=== PATIENT | female | born 1955 | race Caucasian/White ===

== ENCOUNTER → 2017-09-17 13:02 | Outpatient (CLI) | payer OTHER, SELFPAY ==
[2017-09-17 13:20] LABS: Add Manual Diff / Slide Review NO; Basophils Percent Auto 0.9 % (0-2); Eosinophils Percent Auto 0.8 % (2-4); Hematocrit 38.7 % (36-46); Hemoglobin 13.2 g/dL (12.0-16.0); Lymphocytes Percent Auto 19.6 % (25-40); Mean Corpuscular HGB Conc 34.1 % (30-36); Mean Corpuscular Volume 93.9 fL (80-100); Monocytes Percent Auto 8.4 % (3-14); Neutrophils Absolute Auto 2500 /uL (3000-5900); Neutrophils Percent Auto 70.3 % (50-75); Platelet Count 207 X10^3/uL (150-400); Red Blood Cell Count 4.12 X10^6/uL (4.0-5.2); Red Cell Distribution Width 13.5 % (11.6-14.8); White Blood Cell Count 3.6 X10^3/uL (4.5-11.0)
[2017-09-17 13:48] LABS: Albumin 4.3 g/dL (3.5-5.0); Chloride 98 mmol/L (98-107); Estimated Glomerular Filt Rate > 60.0 mL/min (>60); HEMOLYSIS 50 (0-50); Potassium 4.1 mmol/L (3.4-5.1); Sodium 135 mmol/L (137-145)
[2017-09-17 14:23] LABS: Alanine Aminotransferase 22 IU/L (9-52); Albumin Globulin Ratio 1.7 (1.0-2.8); Alkaline Phosphatase 37 U/L (38-126); Aspartate Aminotransferase 32 IU/L (14-36); BUN Creatinine Ratio 21.4 (6-22); Bilirubin Total 0.8 mg/dL (0.2-1.3); Blood Urea Nitrogen 15 mg/dL (7-17); Calcium 9.6 mg/dL (8.4-10.2); Carbon Dioxide 23 mmol/L (22-32); Globulin 2.6 g/dL (1.7-4.1); Glucose 133 mg/dL (80-110); Total Protein 6.9 g/dL (6.3-8.2)
== END ==
PROVIDERS: PCP Internal Medicine; Visit Provider Nurse Practitioner Gerontology
DX: C50.912 Malignant neoplasm of unspecified site of left female breast (principal); T45.1X5A Adverse effect of antineoplastic and immunosuppressive drugs, initial encounter; R11.0 Nausea
CPT/HCPCS: 80053; 85025

== ENCOUNTER → 2017-10-27 08:43 | Outpatient (CLI) | payer OTHER, SELFPAY ==
[2017-10-27 10:04] LABS: Free T4, Direct Thyroxine 1.35 ng/dL (0.78-2.19)
[2017-10-27 10:17] LABS: Thyroid Stimulating Hormone 2.52 uIU/mL (0.47-4.68)
== END ==
PROVIDERS: PCP Internal Medicine; Visit Provider Internal Medicine
DX: E03.9 Hypothyroidism, unspecified (principal)
CPT/HCPCS: 36415; 84439; 84443; 84481

== ENCOUNTER → 2017-12-31 08:34 | Outpatient (CLI) | payer OTHER, SELFPAY ==
[2017-12-31 10:15] LABS: Free T3, Triiodothyronine Free 2.69 pg/mL (2.77-5.27); Free T4, Direct Thyroxine 1.24 ng/dL (0.78-2.19)
[2017-12-31 10:28] LABS: Thyroid Stimulating Hormone 4.69 uIU/mL (0.47-4.68)
== END ==
PROVIDERS: PCP Internal Medicine; Visit Provider Internal Medicine
DX: E03.9 Hypothyroidism, unspecified (principal)
CPT/HCPCS: 36415; 84439; 84443; 84481

== ENCOUNTER → 2018-01-26 12:58 | Outpatient (CLI) | payer OTHER, SELFPAY ==
--- NOTE | 2018-01-26 | DI.MG.S_ITS ---
UNILATERAL RIGHT DIGITAL SCREENING MAMMOGRAM 3D/2D WITH CAD POST MASTECTOMY: 01/26/2018 CLINICAL: Routine screening. Personal history of left breast cancer. Post left mastectomy. Comparison is made to exams dated: 01/21/2017 mammogram, 03/31/2016 mammogram - [facility], and 03/11/2016 [facility]. The tissue of right breast is heterogeneously dense. This may lower the sensitivity of mammography. Current study was also evaluated with a Computer Aided Detection (CAD) system. No significant masses, calcifications, or other findings are seen in the breast. There has been no significant interval change. IMPRESSION: NEGATIVE There is no mammographic evidence of malignancy. A 1 year screening mammogram is recommended. This exam was interpreted at Station ID: [id number]. NOTE: For mammograms, a report in lay terms will be sent to the patient. Approximately 15% of breast malignancies will not be visualized mammographically. In the management of a palpable breast mass, a negative mammogram must not discourage biopsy of a clinically suspicious lesion. Electronically Signed By: Mike sams/luis:01/26/2018 21:49:07 copy to: Xiomara Wade letter sent: Normal Exam ACR BI-RADS Category 1: Negative 3341F
== END ==
PROVIDERS: PCP Internal Medicine; Visit Provider Internal Medicine
DX: Z12.31 Encounter for screening mammogram for malignant neoplasm of breast (principal); Z85.3 Personal history of malignant neoplasm of breast
CPT/HCPCS: 77063; 77065

== ENCOUNTER → 2018-02-14 13:00 | Oncology outpatient (ONC) | payer OTHER, SELFPAY ==
--- NOTE | 2017-09-23 09:10 | P.PNONC_ITS ---
Assessment and Plan (1) Breast cancer, left Current visit: No Status: Acute 09/23/17 17:02 Zee is a 62-year-old female who is now in clinical surveillance with a diagnosis of stage II ER negative, her 2 positive breast cancer. She presents today for routine 6 month surveillance. She looks very good on exam today, overall is feeling well. She reports steady improvement with her overall well- being over the last several months since her chemotherapy was completed. She does still have some lingering cognitive issues specifically short-term memory and word finding however this is mild and also is getting better as time passes. It is noted she does use marijuana this may be contributing to some of this cognitive dysfunction. Patient agrees. However overall she states cognition is much improved and almost back to normal. Her primary care provider Dr. Alfred manages her thyroid most recent TSH was only mildly elevated at 4.7. She remains on levothyroxine 75 mcg once daily. She has her annual unilateral screening mammogram already scheduled for January. Return to clinic in 6 months time for provider visit CBC CMP. - Time Spent with Patient 35 minutes PN -Subjective Interval history: The patient is a 62 year old Female who is being seen in the clinic 09/23/2017. She carries a diagnosis of stage II ER negative HER-2 positive breast cancer treated with Adriamycin and psych low phosphate might followed by weekly pac litaxel. Treatment plan also included maintenance Herceptin x1 year however this was discontinued due to decline in ejection fraction. She was receiving maintenance Herceptin July 2016 through March 2017. Zee presents today for 6 month clinical evaluation. She states she is feeling stronger everyday. She remains active walking her dog several times a day. Denies chest pain, shortness of breath. Appetite is very good, weight is stable. No new lumps or bumps. Her thyroid seems to be under good control now. She already has her annual screening unilateral mammogram scheduled. No recent illnesses or infections. She reports some ongoing issues with memory, word finding which she first noticed when she was quite hypothyroid. Now much better and has been steadily improving. She does use marijuana for peripheral neuropathy which also seems to be getting better. Past Medical History The patient's past medical history is significant for: 1) left-sided invasive breast cancer: stage II (pT2, pN1, M0), ercb-2 like. Diagnosis/Surgery: 03/11/2016. Partial mastectomy. Pathology confirming invasive carcinoma of the breast measuring 34 mm in greatest diameter. [place] histological grade was 3 with a mitotic score of 2. Medial margin was focally positive all other margins were otherwise clear with no tumor on ink. No LV I was seen. Immunohistochemistry stains were estrogen and progesterone receptor negative at 0% and 0% respectively. 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 Architectural pattern was comedo. Grade was 3. Necrosis was present. Margins were clear but close with the medial, anterior and posterior margins at 1 mm. 04/14/2016. Rexcision of the left breast with sentinel node procedure. Pathology confirming scattered foci of DCIS high grade solid with no necrosis. Persistent positive margin noted at the superior the remainder margins were clear. No evidence of invasive carcinoma seen. One sentinel lymph node was positive for metastatic carcinoma measuring 12 mm without extranodal extension. 7 additional axillary lymph nodes were also excised noted which were involved with disease. Clinical staging workup: 01/10/2016. Bilateral screening mammogram. This identified new area of heterogeneous calcification left breast. Breast density was noted to be heterogeneously dense. Left-sided diagnostic mammogram in 01/22/2016 confirming calcifications left breast 12 o'clock position with an associated nodule measuring up to 7 mm. Ultrasound done later that day also confirming at least 3 areas of intraductal masses with circumscribed margins the left breast superior medial quadrant anterior depth measuring up to 5 mm. No abnormality was seen in the left axilla. 03/31/2016. MRI of the breast. In the left breast irregular fluid collection measuring 30 x 24 x 26 mm was reported as the resection cavity. However the lower margin extending upwards, posteriorly and laterally showing mildly thick wall enhancement suggestive for remaining disease. No other findings were seen in either breast. 04/17/2016. CT of the chest on the pelvis with contrast. No evidence of distant disease. 04/17/2016. Bone scan. No definitive evidence of distant disease was seen. 04/17/2016. Baseline tumor markers. Normal with CEA a at 0.9, CA 15-3 at 8, and CA 15.27 at 18. Prognosis/Predictive workup: PREDICT Tool 2.0: Five and 10 year survival without adjuvant therapy equal to 55 and 42% respectively. Anthracycline-based chemotherapy with concurrent Herceptin improving 5 and 10 year overall survival to 76% and 65% respectively. Aprroximate 20 and 23% absolute benefit. Treatment plan: Adjuvant chemotherapy, radiation, maintenance HER-2 based therapies. Specific regimen: Adriamycin and cyclophosphamide given every 2 weeks ?4 followed by weekly paclitaxel with concurrent Herceptin ?12. This will be followed with maintenance Herceptin ?1 year. Cycle 1 day 1 05/21/2016. 05/21/2016-10/20/2016: A/C ?4 followed by weekly paclitaxel with concurrent Herceptin. Total planned dose of paclitaxel = 960 mg/m?. Total administered = 720 mg/meter squared (dose limited by treatment side effects). 11/19/2016- : Maintenance Herceptin. Pertuzamab denied by insurance. Cardiac monitorin05/08/2016. Baseline echocardiogram. EF 60-65%. No valvular pathology appreciated. The ventricles were normal in size. Right ventricular systolic pressure 24 mmHg. 08/06/2016. Echocardiogram. (After 4 cycles of Adriamycin and cyclophosphamide). Ejection fraction equal to 60-65%. 11/02/2016. Echocardiogram (after 12 weeks of Herceptin). Ejection fraction equal to 60-65%. 01/20/2017. Echocardiogram. Ejection fraction 50-55%. 2) adrenal adenoma surgically resected. 3) secondary hypertension. 4) migraines. 5) hypothyroidism. Diagnosis confirmed on 10/01/2016. TSH equal to 6.9. Patient started level of thyroxine 25 ?g that day. TSH 0.02 01/2017 levothyroxine discontinued. TSH 03/08/2017 113. Levothyroxine resumed per PCP. 5) MTHFR mutation with a 1298 A>C. Clinical significance of this mutation is undetermined. Normal risk of hyper homocystinemia is noted. Patient does not have the more common 677 C>T mutation. Homocystine levels checked on 09/17/2016 normal at 6.1 (normal less than 10.4). Breast Resection Staging BC Resection Histology Grade III (katina grade III) Past Surgical History The patient's past surgical history includes: No change in her surgical history. Pain level (0-10): 1 Breast Resection Staging BC Resection Histology Grade III (katina grade III) Home Medications and Allergies Home Medications Medication Instructions Recorded Confirmed Type [HEMP OIL] HS #0 04/21/16 History pyridoxine (vitamin B6) 300 mg PO QDAY #0 05/28/16 History [PROBIOTIC] 1 cap PO QDAY #0 06/04/16 History [TURKEY TAIL MUSHROOM] 3 tab PO BID #0 06/04/16 History acetaminophen [Tylenol Extra 1 - 2 tab PO HS PRN #0 07/09/16 History Strength] [FOLIC ACID] 400 mcg PO QDAY #0 09/03/16 History [CURCUMIN] Q DAY #0 11/19/16 History [FLAXSEED OIL] 1,200 mg QDAY #0 03/17/17 History aspirin 81 mg PO QDAY #0 03/17/17 History levothyroxine 50 mcg PO QDAY #0 03/17/17 History alpha lipoic acid 200 mg PO Q DAY #0 03/25/17 History Allergies Allergy/AdvReac Type Severity Reaction Status Date / Time adhesive [ADHESIVE] Allergy Unknown Unverified 07/14/17 12:30 iodine [IODINE] Allergy Unknown HIVES, Unverified 07/14/17 12:30 ITCH-iv contrast only. topical ok. latex [LATEX] Allergy Unknown BLISTERS Unverified 07/14/17 12:30 hydrochlorothiazide AdvReac Mild VERY LOW Unverified 07/14/17 12:30 [HYDROCHLOROTHIAZIDE] POTASSIUM(LABS) gabapentin [GABAPENTIN] AdvReac Unknown Mental Unverified 07/14/17 12:30 confusion, Headache, Dizzy/Lightheaded propoxyphene [From DARVON] AdvReac Unknown NAUSEA Unverified 07/14/17 12:30 Exam Narrative: very vibrant and well appearing. Accompanied by her Fortunato - Constitutional positive no acute distress, positive thin Comments: fit appearing - Routine HEENT Exam Eye: Present: conjunctivae pink. Absent: conjunctival icterus, scleral injection ENT: Present: mucous membranes moist - Routine Neck Exam Present: supple. Absent: lymphadenopathy - Routine Chest/Breast/Axilla Exam Chest wall exam standard: Absent: tenderness, mass Breast: Present: left mastectomy. Absent: tenderness, induration, mass Axillae: Absent: lymphadenopathy, mass, tenderness - Routine Respiratory Exam Present: Clear to auscultation bilaterally. Absent: rales, rhonchi, wheezes - Routine Cardiovascular Exam Present: RRR, S1, S2. Absent: murmur, gallop, rubs, JVD - Routine Abdominal Exam Present: soft, normoactive bowel sounds. Absent: tenderness, distended, organomegaly - Routine Extremities Exam Absent: edema, calf tenderness - Routine Skin Exam Present: intact, normal turgor. Absent: petechiae, rash - Routine Neurological Exam Present: alert, oriented X3, CN II-XII intact, vision grossly intact, hearing grossly intact - Routine Psychiatric Exam Present: normal affect, normal thought process, cooperative, good insight, good judgment
[2017-09-23 14:15] VITALS: BP 128/75; PULSE 72; RESP 18; TEMP 36.8; O2SAT 100
--- NOTE | 2017-09-23 14:22 | ONC.NAV ---
Description: Medical Marijuana Authorization Activity: Completed a medical marijuana authorization form for pt, per her request. MANINDER Joiner, signed and provided it to pt during her visit today.
--- NOTE | 2018-02-14 18:23 | ONC.APRN.PN ---
PN -Subjective Interval history: The patient is a 62 year old Female who is being seen in the clinic 02/14/2018 for survivorship counseling. She carries a diagnosis of stage II ER negative HER-2 positive breast cancer treated with Adriamycin and psych low phosphate might followed by weekly paclitaxel. Treatment plan also included maintenance Herceptin x1 year however this was discontinued due to decline in ejection fraction. She was receiving maintenance Herceptin July 2016 through March 2017. Visit today was in conjunction with MS Claribel Chatterjee. We reviewed the patient's diagnosis, the treatment she received. We reviewed common late effect and longstanding sequelae. Patient reports she has ongoing ?memory issues specifically word-finding?. This does not seem to be getting any worse perhaps getting a bit better very slowly. No neuropathy. No recent illnesses or infections. No new pain. She is sleeping quite well. She does experience some fatigue however she remains quite active. She did have to stop working due to the cognitive changes. She reports she is concerned about some changes in her right breast specifically beneath her nipple. I offered her a visit however she would rather wait until after the of the year due to insurance reasons. Past Medical History The patient's past medical history is significant for: 1) left-sided invasive breast cancer: stage II (pT2, pN1, M0), ercb-2 like. Diagnosis/Surgery: 03/11/2016. Partial mastectomy. Pathology confirming invasive carcinoma of the breast measuring 34 mm in greatest diameter. [place] histological grade was 3 with a mitotic score of 2. Medial margin was focally positive all other margins were otherwise clear with no tumor on ink. No LV I was seen. Immunohistochemistry stains were estrogen and progesterone receptor negative at 0% and 0% respectively. 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 Architectural pattern was comedo. Grade was 3. Necrosis was present. Margins were clear but close with the medial, anterior and posterior margins at 1 mm. 04/14/2016. Rexcision of the left breast with sentinel node procedure. Pathology confirming scattered foci of DCIS high grade solid with no necrosis. Persistent positive margin noted at the superior the remainder margins were clear. No evidence of invasive carcinoma seen. One sentinel lymph node was positive for metastatic carcinoma measuring 12 mm without extranodal extension. 7 additional axillary lymph nodes were also excised noted which were involved with disease. Clinical staging workup: 01/10/2016. Bilateral screening mammogram. This identified new area of heterogeneous calcification left breast. Breast density was noted to be heterogeneously dense. Left-sided diagnostic mammogram in 01/22/2016 confirming calcifications left breast 12 o'clock position with an associated nodule measuring up to 7 mm. Ultrasound done later that day also confirming at least 3 areas of intraductal masses with circumscribed margins the left breast superior medial quadrant anterior depth measuring up to 5 mm. No abnormality was seen in the left axilla. 03/31/2016. MRI of the breast. In the left breast irregular fluid collection measuring 30 x 24 x 26 mm was reported as the resection cavity. However the lower margin extending upwards, posteriorly and laterally showing mildly thick wall enhancement suggestive for remaining disease. No other findings were seen in either breast. 04/17/2016. CT of the chest on the pelvis with contrast. No evidence of distant disease. 04/17/2016. Bone scan. No definitive evidence of distant disease was seen. 04/17/2016. Baseline tumor markers. Normal with CEA a at 0.9, CA 15-3 at 8, and CA 15.27 at 18. Prognosis/Predictive workup: PREDICT Tool 2.0: Five and 10 year survival without adjuvant therapy equal to 55 and 42% respectively. Anthracycline-based chemotherapy with concurrent Herceptin improving 5 and 10 year overall survival to 76% and 65% respectively. Aprroximate 20 and 23% absolute benefit. Treatment plan: Adjuvant chemotherapy, radiation, maintenance HER-2 based therapies. Specific regimen: Adriamycin and cyclophosphamide given every 2 weeks ?4 followed by weekly paclitaxel with concurrent Herceptin ?12. This will be followed with maintenance Herceptin ?1 year. Cycle 1 day 1 05/21/2016. 05/21/2016-10/20/2016: A/C ?4 followed by weekly paclitaxel with concurrent Herceptin. Total planned dose of paclitaxel = 960 mg/m?. Total administered = 720 mg/meter squared (dose limited by treatment side effects). 11/19/2016- : Maintenance Herceptin. Pertuzamab denied by insurance. Cardiac monitorin05/08/2016. Baseline echocardiogram. EF 60-65%. No valvular pathology appreciated. The ventricles were normal in size. Right ventricular systolic pressure 24 mmHg. 08/06/2016. Echocardiogram. (After 4 cycles of Adriamycin and cyclophosphamide). Ejection fraction equal to 60-65%. 11/02/2016. Echocardiogram (after 12 weeks of Herceptin). Ejection fraction equal to 60-65%. 01/20/2017. Echocardiogram. Ejection fraction 50-55%. 2) adrenal adenoma surgically resected. 3) secondary hypertension. 4) migraines. 5) hypothyroidism. Diagnosis confirmed on 10/01/2016. TSH equal to 6.9. Patient started level of thyroxine 25 ?g that day. TSH 0.02 01/2017 levothyroxine discontinued. TSH 03/08/2017 113. Levothyroxine resumed per PCP. 5) MTHFR mutation with a 1298 A>C. Clinical significance of this mutation is undetermined. Normal risk of hyper homocystinemia is noted. Patient does not have the more common 677 C>T mutation. Homocystine levels checked on 09/17/2016 normal at 6.1 (normal less than 10.4). Breast Resection Staging BC Resection Histology Grade III (samuel grade III) Past Surgical History The patient's past surgical history includes: No change in her surgical history. Pain level (0-10): 1 Breast Resection Staging BC Resection Histology Grade III (samuel grade III) - Patient Self-Reported Symptoms SR eye issues: Vision changes SR Genitourinary issues: Sexual difficulties SR Neuro issues: Headache SR Endocrine issues: Cold intolerance Home Medications and Allergies Home Medications Medication Instructions Recorded Confirmed Type [HEMP OIL] HS #0 04/21/16 History pyridoxine (vitamin B6) 300 mg PO QDAY #0 05/28/16 History [PROBIOTIC] 1 cap PO QDAY #0 06/04/16 History [TURKEY TAIL MUSHROOM] 3 tab PO BID #0 06/04/16 History acetaminophen [Tylenol Extra 1 - 2 tab PO HS PRN #0 07/09/16 History Strength] [FOLIC ACID] 400 mcg PO QDAY #0 09/03/16 History [CURCUMIN] Q DAY #0 11/19/16 History [FLAXSEED OIL] 1,200 mg QDAY #0 03/17/17 History aspirin 81 mg PO QDAY #0 03/17/17 History levothyroxine 50 mcg PO QDAY #0 03/17/17 History alpha lipoic acid 200 mg PO Q DAY #0 03/25/17 History Allergies Allergy/AdvReac Type Severity Reaction Status Date / Time adhesive [ADHESIVE] Allergy Unknown Unverified 07/14/17 12:30 iodine [IODINE] Allergy Unknown HIVES, Unverified 07/14/17 12:30 ITCH-iv contrast only. topical ok. latex [LATEX] Allergy Unknown BLISTERS Unverified 07/14/17 12:30 hydrochlorothiazide AdvReac Mild VERY LOW Unverified 07/14/17 12:30 [HYDROCHLOROTHIAZIDE] POTASSIUM(LABS) gabapentin [GABAPENTIN] AdvReac Unknown Mental Unverified 07/14/17 12:30 confusion, Headache, Dizzy/Lightheaded propoxyphene [From DARVON] AdvReac Unknown NAUSEA Unverified 07/14/17 12:30 Assessment and Plan (1) Breast cancer, left Current visit: No Status: Acute The patient is a 62 year old Female who is being seen in the clinic 02/14/2018 for survivorship counseling. She carries a diagnosis of stage II ER negative HER-2 positive breast cancer treated with Adriamycin and psych low phosphate might followed by weekly paclitaxel. Treatment plan also included maintenance Herceptin x1 year however this was discontinued due to decline in ejection fraction. She was receiving maintenance Herceptin July 2016 through March 2017. Visit today was in conjunction with MS Claribel Chatterjee. We reviewed the patient's treatment plan, NCCN guidelines regarding ongoing disease monitoring for the next 5 years. All questions answered to patient's satisfaction. Again, patient did report some changes in her right breast however due to insurance reasons she would like to wait until after the of the year for a visit. - Time Spent with Patient 45 minutes
--- NOTE | 2018-02-15 09:23 | ONC.NAV ---
Late Entry: Visit 02/14/18 Activity: CARE MANAGEMENT ASSISTANT and SUBCONTRACT MANAGER, Silvia, met with pt for her survivorship visit. Pt came prepared with several questions and concerns, many of which were lasting side-effects of her treatment. Discussed coping, resources, support, as well as preventative recommendations for ongoing care. Provided pt a copy of her Survivorship Summary, and will f/u with sending a copy to her primary care provider.
== END ==
PROVIDERS: PCP Internal Medicine; Visit Provider Nurse Practitioner Gerontology
DX: Z08 Encounter for follow-up examination after completed treatment for malignant neoplasm (principal); Z85.3 Personal history of malignant neoplasm of breast
CPT/HCPCS: 99214; 99215

== ENCOUNTER → 2018-07-07 09:50 | Outpatient (CLI) | payer OTHER, SELFPAY ==
[2018-07-07 12:37] LABS: Free T3, Triiodothyronine Free 2.97 pg/mL (2.77-5.27)
[2018-07-07 12:51] LABS: Thyroid Stimulating Hormone 1.95 uIU/mL (0.47-4.68)
== END ==
PROVIDERS: PCP Internal Medicine; Visit Provider Internal Medicine
DX: E03.9 Hypothyroidism, unspecified (principal)
CPT/HCPCS: 36415; 84439; 84443; 84481

== ENCOUNTER → 2019-02-10 13:26 | Outpatient (CLI) | payer OTHER, SELFPAY ==
--- NOTE | 2019-02-10 | DI.MG.S_ITS ---
UNILATERAL RIGHT DIGITAL SCREENING MAMMOGRAM 3D/2D WITH CAD POST MASTECTOMY: 02/10/2019 CLINICAL: Routine screening. Personal history of left breast cancer. Comparison is made to exams dated: 01/26/2018 mammogram - [facility], 01/21/2017 mammogram [facility], and 01/10/2016 [facility]. The tissue of right breast is heterogeneously dense. This may lower the sensitivity of mammography. Current study was also evaluated with a Computer Aided Detection (CAD) system. No significant masses, calcifications, or other findings are seen in the breast. There has been no significant interval change. IMPRESSION: NEGATIVE There is no mammographic evidence of malignancy. A 1 year screening mammogram is recommended. This exam was interpreted at Station ID: [id number]. NOTE: For mammograms, a report in lay terms will be sent to the patient. Approximately 15% of breast malignancies will not be visualized mammographically. In the management of a palpable breast mass, a negative mammogram must not discourage biopsy of a clinically suspicious lesion. Electronically Signed By: Chadd betancur/luis:02/10/2019 16:17:54 letter sent: Normal Exam ACR BI-RADS Category 1: Negative 3341F
== END ==
PROVIDERS: PCP Internal Medicine; Visit Provider Internal Medicine
DX: Z12.31 Encounter for screening mammogram for malignant neoplasm of breast (principal); Z85.3 Personal history of malignant neoplasm of breast
CPT/HCPCS: 77063; 77067

== ENCOUNTER → 2019-02-21 08:37 | Outpatient (CLI) | payer OTHER, SELFPAY ==
[2019-02-21 09:44] LABS: Cholesterol 286 mg/dL (140-199); HDL Cholesterol 91 mg/dL (40-60); LDL Cholesterol Calculated 177 mg/dL (<100); Triglycerides 90 mg/dL (35-150)
[2019-02-21 10:59] LABS: TSH w/ Reflex to FT4 4.65 uIU/mL (0.47-4.68)
== END ==
PROVIDERS: PCP Internal Medicine; Visit Provider Internal Medicine
DX: E03.9 Hypothyroidism, unspecified (principal); E78.5 Hyperlipidemia, unspecified
CPT/HCPCS: 36415; 80061; 84443

== ENCOUNTER → 2020-02-13 15:35 | Outpatient (CLI) | payer OTHER, SELFPAY ==
--- NOTE | 2020-02-13 | DI.MG.S_ITS ---
UNILATERAL RIGHT DIGITAL SCREENING MAMMOGRAM 3D/2D WITH CAD POST MASTECTOMY: 02/13/2020 CLINICAL: Routine screening. Breast cancer. Comparison is made to exams dated: 02/10/2019 mammogram, 01/26/2018 mammogram - [facility], 01/21/2017 mammogram - [facility], and 01/10/2016 mammogram - [facility]. There are scattered fibroglandular elements in right breast. Current study was also evaluated with a Computer Aided Detection (CAD) system. There are benign calcifications in the right breast. No significant masses, calcifications, or other findings are seen in the breast. There has been no significant interval change. IMPRESSION: BENIGN There is no mammographic evidence of malignancy. A 1 year screening mammogram is recommended. This exam was interpreted at Station ID: [id number]. NOTE: For mammograms, a report in lay terms will be sent to the patient. Approximately 15% of breast malignancies will not be visualized mammographically. In the management of a palpable breast mass, a negative mammogram must not discourage biopsy of a clinically suspicious lesion. Electronically Signed By: Deepak thurston/luis:02/13/2020 17:35:03 letter sent: Normal Exam ACR BI-RADS Category 2: Benign Finding(s) 3342F
== END ==
PROVIDERS: PCP Internal Medicine; Referring Provider Internal Medicine; Visit Provider Internal Medicine
DX: Z12.31 Encounter for screening mammogram for malignant neoplasm of breast (principal); Z85.3 Personal history of malignant neoplasm of breast
CPT/HCPCS: 77063; 77067

== ENCOUNTER → 2020-10-15 10:21 | Outpatient (CLI) | payer MEDICARE, SELFPAY ==
[2020-10-15 11:42] LABS: Alanine Aminotransferase 18 IU/L (<35); Albumin 4.7 g/dL (3.5-5.0); Albumin Globulin Ratio 1.9 (1.0-2.8); Alkaline Phosphatase 34 U/L (38-126); Aspartate Aminotransferase 31 IU/L (14-36); BUN Creatinine Ratio 20.3 (6-22); Bilirubin Total 0.8 mg/dL (0.2-1.3); Blood Urea Nitrogen 15 mg/dL (7-17); Calcium 9.9 mg/dL (8.4-10.2); Carbon Dioxide 29 mmol/L (22-32); Chloride 95 mmol/L (98-107); Cholesterol 268 mg/dL (140-199); Estimated Glomerular Filt Rate > 60.0 mL/min (>60); Globulin 2.5 g/dL (1.7-4.1); Glucose 94 mg/dL (80-110); HEMOLYSIS < 15 (0-50); Potassium 3.6 mmol/L (3.4-5.1); Sodium 130 mmol/L (137-145); Total Protein 7.2 g/dL (6.3-8.2); Triglycerides 67 mg/dL (35-150)
[2020-10-15 11:50] LABS: HDL Cholesterol 124 mg/dL (40-60); LDL Cholesterol Calculated 131 mg/dL (<100)
[2020-10-15 12:12] LABS: TSH w/ Reflex to FT4 1.62 uIU/mL (0.47-4.68)
== END ==
PROVIDERS: PCP Internal Medicine; Referring Provider Internal Medicine; Visit Provider Internal Medicine
DX: E03.9 Hypothyroidism, unspecified (principal); E78.5 Hyperlipidemia, unspecified
CPT/HCPCS: 36415; 80053; 80061; 84443

== ENCOUNTER 2024-03-13 17:42 | Observation (INO) | payer MEDICARE, SELFPAY ==
[2024-03-13] VITALS (16 sets, daily range): BP systolic 122–152; BP diastolic 60–76; PULSE 68–86; RESP 13–32; TEMP 36.9; O2SAT 96–100; BMI 21.9
--- NOTE | 2024-03-13 18:09 | DI.RAD.S_ITS ---
PROCEDURE: XR CHEST 1V INDICATIONS: Possible stroke TECHNIQUE: One view of the chest was acquired. COMPARISON: None. FINDINGS: Surgical changes and devices: Left chest wall surgical clips. Lungs and pleura: Lungs are clear. No pleural effusions or pneumothorax. Mediastinum: Mediastinal contours appear normal. Heart size is normal. Bones and chest wall: No suspicious bony lesions. Overlying soft tissues appear unremarkable. IMPRESSION: No acute cardiopulmonary abnormality is seen. Dictated by: Marco Bah M.D. on 03/13/2024 at 18:38 Approved by: Marco Bah M.D. on 03/13/2024 at 18:38
--- NOTE | 2024-03-13 18:10 | DI.CT.S_ITS ---
PROCEDURE: CT HEAD/BRAIN WO CON INDICATIONS: 1610 could not spell or remember things. symptoms resolved TECHNIQUE: Noncontrast 4.5 mm thick angled axial sections acquired from the foramen magnum to the vertex, with coronal and sagittal reformats. For radiation dose reduction, the following was used: automated exposure control, adjustment of mA and/or kV according to patient size. COMPARISON: None. FINDINGS: Image quality: Diagnostic. CSF spaces: Basal cisterns are patent. No extra-axial fluid collections. The ventricles are symmetric in size and shape. Brain: No intracranial bleeds or masses. There is cerebral volume loss for age, with resultant ventricular and sulcal prominence. There are periventricular and deep white matter chronic small vessel ischemic changes. There is intracranial internal carotid artery atherosclerosis. Skull and face: Calvarium and visualized facial bones appear intact, without suspicious lesions. Sinuses: Visualized sinuses and mastoids are clear. IMPRESSION: No acute intracranial pathology. Dictated by: Marco Bah M.D. on 03/13/2024 at 19:12 Approved by: Marco Bah M.D. on 03/13/2024 at 19:14
[2024-03-13 18:26] LABS: Add Manual Diff / Slide Review NO; Basophils Absolute Auto 100 /uL (0-100); Basophils Percent Auto 1.2 % (0-2); Eosinophils Absolute Auto 100 /uL (0-450); Hemoglobin 13.3 g/dL (12.0-16.0); Lymphocytes Absolute Auto 1800 /uL (1100-4500); Lymphocytes Percent Auto 29.3 % (25-40); Mean Corpuscular HGB Conc 33.3 % (30-36); Mean Corpuscular Volume 93.1 fL (80-100); Monocytes Absolute Auto 500 /uL (0-900); Monocytes Percent Auto 7.7 % (3-14); Neutrophils Absolute Auto 3700 /uL (1500-7000); Neutrophils Percent Auto 60.8 % (50-75); Platelet Count 280 X10^3/uL (150-400); Red Cell Distribution Width 13.1 % (11.6-14.8); White Blood Cell Count 6.2 X10^3/uL (4.5-11.0)
[2024-03-13 18:34] LABS: INR 1.1 (0.9-1.3); Prothrombin Time 12.3 SECONDS (9.4-12.5)
[2024-03-13 18:37] LABS: PTT Partial Thromboplastin Tim 33 SECONDS (25.1-36.5)
[2024-03-13 18:40] LABS: Alanine Aminotransferase 20 IU/L (<35); Albumin 4.7 g/dL (3.5-5.0); Albumin Globulin Ratio 1.8 (1.0-2.8); Alkaline Phosphatase 37 U/L (38-126); Aspartate Aminotransferase 32 IU/L (14-36); BUN Creatinine Ratio 16.1 (6-22); Bilirubin Total 0.7 mg/dL (0.2-1.3); Blood Urea Nitrogen 14 mg/dL (7-17); Calcium 10.3 mg/dL (8.4-10.2); Carbon Dioxide 29 mmol/L (22-32); Chloride 102 mmol/L (98-107); Creatine Kinase 53 U/L (30-135); Estimated Glomerular Filt Rate > 60 mL/min (>60); Globulin 2.6 g/dL (1.7-4.1); Glucose 101 mg/dL (80-110); HEMOLYSIS < 15 (0-50); Potassium 3.6 mmol/L (3.4-5.1); Sodium 137 mmol/L (137-145); Total Protein 7.3 g/dL (6.3-8.2)
--- NOTE | 2024-03-13 18:42 | EKG_ITS ---
[facility] [address], [place] [address] Test Date: 2024-03-13 Pat Name: Zee Guidry Department: [facility] Room: Gender: Female [employer]: : 1955 Requested By: Order Number: [id number] Reading MD: Ken Ma MD Measurements Intervals [place] Rate: 74 P: 28 LA: 138 QRS: 0 QRSD: 86 T: 54 QT: 386 QTc: 428 Interpretive Statements Normal sinus rhythm Septal infarct , age undetermined Electronically Signed On 03-14-2024 6:51:29 PST by Ken Ma MD
[2024-03-13 18:50] LABS: Troponin I < 0.012 ng/mL (0.01-0.034)
[2024-03-13 20:39] LABS: Ur Creatinine Normal (Normal); Ur Specific Gravity Normal (Normal); Urine Amphetamines Negative (Negative); Urine Barbiturates Negative (Negative); Urine Benzodiazepines Negative (Negative); Urine Cocaine Negative (Negative); Urine MDMA Negative (Negative); Urine Methadone Negative (Negative); Urine Methamphetamines Negative (Negative); Urine Opiates Negative (Negative); Urine Oxycodone Negative (Negative); Urine Phencyclidine Negative (Negative); Urine THC Negative (Negative); Urine Tricyclic Antidepressant Negative (Negative); Urine pH Normal (Normal)
--- NOTE | 2024-03-13 20:43 | ED_ITS ---
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 today when she suddenly could not seem to find the letter S on the keyboard, commenced typing, realize she was typing gibberish, could not seem to figure out how to do cut and paste functions that she can usually do, symptoms lasted a proximally 1 hour and then seemed to get better. Mild headache subsequent to this event. No injury or trauma new activities. No use of drugs. No focal weakness face arm or leg. No tingling or numbness to face arm or leg. He has not take any blood thinner medications, did not take any aspirin or any other medications. She has had a history of remote migraine headaches, never like this, no loss of executive functions. No stroke. No shaking activities, no incontinence of urine or stool. On Anticoagulants: No Related Data Home Medications Medication Instructions Recorded Confirmed acetaminophen 500 mg tablet 1 - 2 tab PO HS PRN Fever Or Pain 07/09/16 03/14/24 (Tylenol Extra Strength) ##0 levothyroxine 50 mcg tablet 88 mcg PO QAM ##0 03/17/17 03/14/24 Allergies Allergy/AdvReac Type Severity Reaction Status Date / Time Gadolinium-Containing Allergy Severe Rash Verified 03/14/24 02:34 Contrast Medi adhesive [ADHESIVE] Allergy Unknown Unverified 07/14/17 12:30 iodine [IODINE] Allergy Unknown HIVES, Unverified 07/14/17 12:30 ITCH-iv contrast only. topical ok. latex [LATEX] Allergy Unknown BLISTERS Unverified 07/14/17 12:30 hydrochlorothiazide AdvReac Mild VERY LOW Unverified 07/14/17 12:30 [HYDROCHLOROTHIAZIDE] POTASSIUM(LABS) gabapentin [GABAPENTIN] AdvReac Unknown Mental Unverified 07/14/17 12:30 confusion, Headache, Dizzy/Lightheaded propoxyphene [From DARVON] AdvReac Unknown NAUSEA Unverified 07/14/17 12:30 Review of Systems Review of Systems Narrative: See HPI Hematologic/Lymphatic On Anticoagulants: No Patient History Social History household members: spouse Smoking Status: Never smoker Smoking Status: Never smoker Exam Narrative Exam Narrative: GENERAL: Well-developed patient, in mild distress. HEAD: Atraumatic. Normocephalic. EYES: Pupils equal round and reactive. Extraocular motions intact. No scleral icterus. No injection or drainage. ENT: Nose without bleeding, purulent drainage. Throat without erythema, tonsillar hypertrophy or exudate. Airway patent. NECK: Trachea midline. Non tender CARDIOVASCULAR: Regular rate and rhythm without murmurs, gallops, or rubs. RESPIRATORY: Clear to auscultation. Breath sounds equal bilaterally. No wheezes, rales, or rhonchi. GASTROINTESTINAL: Abdomen soft, non-tender, nondistended. EXTREMITIES: No edema or joint tenderness. BACK: Nontender without deformity or crepitance. No flank tenderness. NEURO: AOx3. Motor 5/5 bilateral upper extremity and bilateral lower extremities. Sensory intact to light touch face arm and leg both sides. [id number]-iz-[id number] testing normal. SKIN: No rash or erythema of visible areas Initial Vital Signs Initial Vital Signs: Vital Signs Temperature 98.5 F 03/13/24 17:46 Pulse Rate 78 03/13/24 17:46 Respiratory Rate 16 03/13/24 17:46 Blood Pressure 152/70 H 03/13/24 17:46 Pulse Oximetry 100 03/13/24 17:46 Oxygen Delivery Method Room Air 03/13/24 17:46 Course Orders Ordered: ED Orders 03/13/24 20:20 Urine Drug Screen, Rapid Stat Acetaminophen (Acetaminophen 325 Mg Tablet) 650 mg PO Q6H PRN PRN Reason: Fever/Mild Pain (1-3) Enoxaparin Sodium (Enoxaparin 40 Mg/0.4 Ml Syringe) 40 mg SUBCUT DAILY [facility] Levothyroxine Sodium (Levothyroxine 88 Mcg Tablet) 88 mcg PO 0600 [facility] Naloxone HCl (Naloxone 0.4 Mg/Ml Vial) 0.2 mg IV Q2MIN PRN PRN Reason: Opiate Reversal Ondansetron HCl (Ondansetron 4 Mg Odt) 4 mg PO Q4HR PRN PRN Reason: Nausea And Vomiting Discontinued Medications Acetaminophen (Acetaminophen 325 Mg Tablet) 650 mg PO Q6H [facility] Last Admin: 03/14/24 03:49 Dose: Not Given Documented By: BR Aspirin (Aspirin Ec 325 Mg Tablet) 325 mg PO NOW ONE Stop: 03/13/24 22:42 Last Admin: 03/13/24 22:47 Dose: 325 mg Documented By: GRADY Enoxaparin Sodium (Enoxaparin 40 Mg/0.4 Ml Syringe) 40 mg SUBCUT DAILY ONE Stop: 03/14/24 02:41 Last Admin: 03/14/24 03:19 Dose: Not Given Documented By: BR Ondansetron HCl (Ondansetron 4 Mg/2 Ml Inj) 4 mg IV NOW PRN PRN Reason: Nausea And Vomiting Ondansetron HCl (Ondansetron 4 Mg Odt) 4 mg SL NOW PRN PRN Reason: Nausea And Vomiting Ondansetron HCl (Ondansetron 4 Mg Odt) 4 mg PO Q4HR [facility] Vital Signs Vital signs: Vital Signs - 8 hr 03/13/24 21:30 03/13/24 22:00 03/13/24 22:56 Pulse Rate 76 70 78 Respiratory Rate 26 H 16 Blood Pressure Pulse Oximetry 99 98 98 03/13/24 22:58 03/13/24 22:58 03/13/24 23:00 Pulse Rate 75 Respiratory Rate 22 Blood Pressure 134/71 129/76 Pulse Oximetry 99 03/13/24 23:00 Pulse Rate 74 Respiratory Rate 15 Blood Pressure Pulse Oximetry 99 MDM - Neuro Symptoms/Deficit Lab Data Attestation: I reviewed the patient's lab results. Lab results narrative: White blood cell count 6002, 13.3 platelets adequate. Basic metabolic panel unremarkable. Liver functions unremarkable. Troponin negative. Urine tox screen negative. 03/13/24 17:50 03/13/24 17:50 Labs: Lab Results 03/13/24 03/13/24 Range/Units 17:50 20:20 WBC 6.2 (4.5-11.0) X10^3/uL RBC 4.30 (4.0-5.2) X10^6/uL Hgb 13.3 (12.0-16.0) g/dL Hct 40.0 (36-46) % MCV 93.1 (80-100) fL MCH 31.0 (26-34) PG MCHC 33.3 (30-36) % RDW 13.1 (11.6-14.8) % Plt Count 280 (150-400) X10^3/uL Neut % (Auto) 60.8 (50-75) % Lymph % (Auto) 29.3 (25-40) % [place] % (Auto) 7.7 (3-14) % Eos % (Auto) 1.0 L (2-4) % Baso % (Auto) 1.2 (0-2) % Neut # (Auto) 3700 (2009-0749) /uL Lymph # (Auto) 1800 (0971-0514) /uL [place] # (Auto) 500 (0-900) /uL Eos # (Auto) 100 (0-450) /uL Baso # (Auto) 100 (0-100) /uL PT 12.3 (9.4-12.5) SECONDS INR 1.1 (0.9-1.3) APTT 33 (25.1-36.5) SECONDS Sodium 137 (137-145) mmol/L Potassium 3.6 (3.4-5.1) mmol/L Chloride 102 (98-107) mmol/L Carbon Dioxide 29 (22-32) mmol/L BUN 14 (7-17) mg/dL Creatinine 0.87 (0.52-1.04) mg/dL Estimated GFR > 60 (>60) mL/min BUN/Creatinine Ratio 16.1 (6-22) Glucose 101 (80-110) mg/dL Calcium 10.3 H (8.4-10.2) mg/dL Magnesium 2.0 (1.6-2.3) mg/dL Total Bilirubin 0.7 (0.2-1.3) mg/dL AST 32 (14-36) IU/L ALT 20 (<35) IU/L Alkaline Phosphatase 37 L (38-126) U/L Total Creatine Kinase 53 (30-135) U/L Troponin I < 0.012 (0.01-0.034) ng/mL Total Protein 7.3 (6.3-8.2) g/dL Albumin 4.7 (3.5-5.0) g/dL Globulin 2.6 (1.7-4.1) g/dL Albumin/Globulin Ratio 1.8 (1.0-2.8) U Opiates 300ng/mL cut Negative (Negative) Ur Oxycodone Screen Negative (Negative) Urine Methadone Screen Negative (Negative) Ur Barbiturates Screen Negative (Negative) U Tricyclic Antidepress Negative (Negative) Ur Phencyclidine Scrn Negative (Negative) Ur Amphetamines Screen Negative (Negative) U Methamphetamines Scrn Negative (Negative) Ur MDMA Scrn (Ecstasy) Negative (Negative) U Benzodiazepines Scrn Negative (Negative) Urine Cocaine Screen Negative (Negative) U Marijuana (THC) Screen Negative (Negative) Urine pH Normal (Normal) Urine Specific [place] Normal (Normal) Ur Creatinine Normal (Normal) Point of Care Testing Glucose POC 85 Imaging Data Chest x-ray: Radiologist's Impression: [address] [address] XRay Report Signed Patient: Zee Guidry MR#: [id number] : 1955 Acct:[id number] Age/Sex: 68 / F Date of Service: 03/13/24 Loc: ED Accession Number: [id number] Procedure: XR chest 1V Ordering Provider: Otis Mason MD PROCEDURE: XR CHEST 1V INDICATIONS: Possible stroke TECHNIQUE: One view of the chest was acquired. COMPARISON: None. FINDINGS: Surgical changes and devices: Left chest wall surgical clips. Lungs and pleura: Lungs are clear. No pleural effusions or pneumothorax. Mediastinum: Mediastinal contours appear normal. Heart size is normal. Bones and chest wall: No suspicious bony lesions. Overlying soft tissues appear unremarkable. IMPRESSION: No acute cardiopulmonary abnormality is seen. Dictated by: Marco Bah M.D. on 03/13/2024 at 18:38 Approved by: Marco Bah M.D. on 03/13/2024 at 18:38 CT scan - head: Radiologist's Impression: [address] [address] [address] Scan Report Signed Patient: Zee Guidry MR#: [id number] : 1955 Acct:[id number] Age/Sex: 68 / F Date of Service: 03/13/24 Loc: ED Accession Number: [id number] Procedure: CT head/brain wo con Ordering Provider: Otis Mason MD PROCEDURE: CT HEAD/BRAIN WO CON INDICATIONS: 1610 could not spell or remember things. symptoms resolved TECHNIQUE: Noncontrast 4.5 mm thick angled axial sections acquired from the foramen magnum to the vertex, with coronal and sagittal reformats. For radiation dose reduction, the following was used: automated exposure control, adjustment of mA and/or kV according to patient size. COMPARISON: None. FINDINGS: Image quality: Diagnostic. CSF spaces: Basal cisterns are patent. No extra-axial fluid collections. The ventricles are symmetric in size and shape. Brain: No intracranial bleeds or masses. There is cerebral volume loss for age, with resultant ventricular and sulcal prominence. There are periventricular and deep white matter chronic small vessel ischemic changes. There is intracranial internal carotid artery atherosclerosis. Skull and face: Calvarium and visualized facial bones appear intact, without suspicious lesions. Sinuses: Visualized sinuses and mastoids are clear. IMPRESSION: No acute intracranial pathology. Dictated by: Marco Bah M.D. on 03/13/2024 at 19:12 Approved by: Marco Bah M.D. on 03/13/2024 at 19:14 ECG Data Attestation: I personally reviewed and interpreted this ECG as follows: Interpretation: Sinus rhythm with rate 74, obvious ST segment elevation or depression. LA 138, QRS 86, QTC 428. 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 Subsequent headache that seems to be improving. CT head study negative. History of iodine allergy, we will hold CT angiogram study for now. Labs pending. EKG shows normal sinus rhythm. Lab studies unremarkable. Chest x-ray negative. CT head noncontrast study negative. See radiology report. Gave oral aspirin. Recommended further admission for likely TIA symptoms. She seems amenable. Consider admission for MRI brain, MRI head and neck vessels, cardiac echo, fasting lipids. We will give oral aspirin for now. 2344, still awaiting call back from hospitalist who was apparently having IT problems logging on, await call back, patient/family updated as to delays. Case presented to hospitalist Dr. Hsu, accepts patient for admission to observation Critical Care Time Critical Care Time Critical Care Time: Yes Total Critical Care Time: 31 Attestation: The high probability of a clinically significant, sudden or life threatening deterioration of the [cerebrovascular] system(s) required my full and direct attention, intervention and personal management. Concern for possible stroke symptoms, symptoms seemed to be resolved, coordination of care with hospitalist after antiplatelet treatment initiated post CT noncontrast study imaging. History of allergy to IV contrast, further imaging with MRI in follow up. Coordination of care with hospitalist service. The aggregate critical care time was [31] minutes. This time is in addition to time spent performing reported procedures but includes the following: [x] Data Review and interpretation [x] Patient assessment and monitoring of vital signs [x] Documentation [x] Medication orders and management Discharge Plan Departure Patient Disposition: Admitted as Observation Clinical Impression: Transient ischemic attack Admit Date/Time: 03/13/24 23:29 Admit Provider: Shannan Hsu
[2024-03-13] MEDS: ASPIRIN EC 325 MG TABLET PO (22:47)
[2024-03-14] VITALS: BP 103/55; PULSE 75; RESP 18; O2SAT 96
[2024-03-14 00:24] VITALS: BMI 21.9
[2024-03-14 00:27] VITALS: BP 133/66; PULSE 71; RESP 18; TEMP 36.3; O2SAT 99
--- NOTE | 2024-03-14 02:47 | P.HP_ITS ---
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 Pt states she was at her computer typing , when around 4:10 pm she noted she was unable to type Letter M as well as she wrote gibberish, even though not intending top. She denies any vision changes or vision loss, she tried to make a call to her Primary care doctor to report these symptoms and was unable to operate her mobile phone. She denies speech problems, no weakness of any extremity, no gen weakness, no CP, SOB, Dizziness, Vertigo, Light Headedness or Syncope. No abd pain, cough or fever. No swallowing difficulty. No recent fall or trauma, denies hitting head. She noted a transient headache, band like of her forehead area, with no aura, and lasted about an hour after her neurologic symptoms started abating. She does not believe this headache was like her usual migraine headaches and she had no aura.Denies N/V , abd Pain, no dysuria or flank pain. No h/o HTN, DM, HLD, prior TIA / Styroke, no FH of Stroke or [place]. Pt denies h/o Cardiac arrythmias. Not taking A?C. Takes Synthroid, Vit B6 and B12 supplements, sec to h/o Peripheral Neuropathy ( controlled with B vitamins) sec to her Cancer related Radiation and Chemo therapy. She was able to call her PCP around 4:50 pm, though had trouble recalling her PCPs name, and was advised to call Urgent care, and advised her to go to ED. Pt then woke up her and he drove her to ED.Her neuro deficits were almost gone by bthe time she had reached the ED. She got a call from her friend at 6:15 pm, and pt was able to talk to her and was able to operate her phone at 6:30 pm when her son called her as well. Pt states she was free of her Headache and felt more relaxed after she recd ASA 325 mg in the ED In ED her VSS, she had a CT head done : Neg for bleed/ mass, acute changes EKG reviewed by me : NSR, VR [address]- T wave changes Her Neuro exam was WNL in ED per ED provider, NIHSS was not calculated at ED as no motor or sensory deficits, and her [employer] neuro deficits almost 80% subsided. Labs unremarkable, Calcium mild up at 10.3 ( was 9 range in october 2022) She states she does not take daily ASA She was give full dose ASA 324 mg po in ED Pt referred to referred to Tele Hospitalist for observation, for further head imnaging and Head and Neck angiography however pt does not want contrast for these imaging exams. [facility] Medical History (Updated 03/14/24 @ 08:37 by Shannan Hsu MD) Hypothyroidism Hypercalcemia Chronic peripheral neuropathic pain Social History household members: spouse Smoking Status: Never smoker Meds Home Medications and Allergies Home Medications Medication Instructions Recorded Confirmed Type acetaminophen 500 mg tablet 1 - 2 tab PO HS PRN Fever Or Pain 07/09/16 03/14/24 History (Tylenol Extra Strength) ##0 levothyroxine 50 mcg tablet 88 mcg PO QAM ##0 03/17/17 03/14/24 History Allergies Allergy/AdvReac Type Severity Reaction Status Date / Time Gadolinium-Containing Allergy Severe Rash Verified 03/14/24 02:34 Contrast Medi adhesive [ADHESIVE] Allergy Unknown Unverified 07/14/17 12:30 iodine [IODINE] Allergy Unknown HIVES, Unverified 07/14/17 12:30 ITCH-iv contrast only. topical ok. latex [LATEX] Allergy Unknown BLISTERS Unverified 07/14/17 12:30 hydrochlorothiazide AdvReac Mild VERY LOW Unverified 07/14/17 12:30 [HYDROCHLOROTHIAZIDE] POTASSIUM(LABS) gabapentin [GABAPENTIN] AdvReac Unknown Mental Unverified 07/14/17 12:30 confusion, Headache, Dizzy/Lightheaded propoxyphene [From DARVON] AdvReac Unknown NAUSEA Unverified 07/14/17 12:30 Review of Systems Review of Systems ROS: Yes All systems reviewed with the patient and are negative except as otherwise documented Exam Vital Signs (past 8 hours): - 03/13/24 19:00 03/13/24 19:30 03/13/24 20:00 Temperature Pulse Rate 72 75 70 Respiratory Rate 25 H 21 24 Blood Pressure Pulse Oximetry 100 100 99 Oxygen Delivery Method Room Air Oxygen Flow Rate 03/13/24 20:29 03/13/24 20:29 03/13/24 20:30 Temperature Pulse Rate 75 Respiratory Rate 16 Blood Pressure 139/63 127/60 Pulse Oximetry 99 Oxygen Delivery Method Oxygen Flow Rate 03/13/24 20:30 03/13/24 21:00 03/13/24 21:00 Temperature Pulse Rate 74 68 Respiratory Rate 16 14 Blood Pressure 134/65 Pulse Oximetry 98 96 Oxygen Delivery Method Oxygen Flow Rate 03/13/24 21:30 03/13/24 22:00 03/13/24 22:56 Temperature Pulse Rate 76 70 78 Respiratory Rate 26 H 16 Blood Pressure Pulse Oximetry 99 98 98 Oxygen Delivery Method Oxygen Flow Rate 03/13/24 22:58 03/13/24 22:58 03/13/24 23:00 Temperature Pulse Rate 75 Respiratory Rate 22 Blood Pressure 134/71 129/76 Pulse Oximetry 99 Oxygen Delivery Method Oxygen Flow Rate 03/13/24 23:00 03/13/24 23:30 03/13/24 23:30 Temperature Pulse Rate 74 75 Respiratory Rate 15 18 Blood Pressure 122/63 Pulse Oximetry 99 96 Oxygen Delivery Method Oxygen Flow Rate 03/14/24 00:00 03/14/24 00:00 03/14/24 00:27 Temperature 97.4 F L Pulse Rate 75 71 Respiratory Rate 18 18 Blood Pressure 103/55 L 133/66 Pulse Oximetry 96 99 Oxygen Delivery Method Oxygen Flow Rate 0 Oxygen Delivery Method Room Air Oxygen Flow Rate 0 Const General: other (A and O x 3 , in no acute distress) Nutritional Appearance: average body habitus and well nourished HENMT Other: HEENT : Head : AT/ NC, PERRL , EOMI Sclera non icteric Nares: no acute findings Oral : MMM, oropharynx : no erythema , no mass Chest Chest: other (CTA, BS WNL bilat , no Wheezing /Rhonchi /Rales) Resp Effort & Inspection: normal respiratory effort and able to speak in complete sentences Cardio Palpation: normal PMI Rate: regular rate Rhythm: regular rhythm Heart Sounds: S1 normal, S2 normal and normal, physiologic split S2 (no murmurs) Bruits: other (no bruit) GI Inspection: normal to inspection Palpation: soft and no hepatosplenomegaly Percussion: other Auscultation: normal bowel sounds Other: non distended , non tender, no flank tenderness Back/Spine/Pelvis Back: other (WNL , no back tenderness) Cervical Spine: normal cervical lordosis, cervical ROM normal, collar present, Lhermitte's sign positive, loss of normal cervical lordosis, cervical muscular tenderness, pain with cervical ROM, scars present, cervical spasm, cervical spinal tenderness, step off deformity, cervical ROM abnormal and other (no neck rigidity , neck is supple ) Skin General: no rashes or lesions noted Wounds: no wounds Neuro General: patient alert, patient awake, patient oriented x3, moves all extremities, normal light touch, pain and propioception, no meningeal signs, no focal motor deficits and CN's II-XI intact bilaterally Cognition: normal cognition Speech: speech normal Gait: other (per nurse ambulating without difficulty, no imbalance ) Motor: muscle tone normal throughout, strength 5/5 throughout, no pronator drift and no movement abnormalities noted Sensory Exam: no sensory deficits noted Coordination: [id number] test normal and other (DTRs 4/5 bilat symmetric) Psych Appearance: grossly normal Speech and Movement: speech and movement normal Mood: congruent mood Affect: normal affect Attitude: cooperative Thought Content: normal Judgment: judgment good Objective ECG Impression: see HPI Imaging CT scan - head: Radiologist's impression: No acute changes Labs 03/14/24 06:20 03/14/24 06:20 Labs: Laboratory Results - last 24 hr 03/13/24 03/13/24 17:50 20:20 WBC 6.2 RBC 4.30 Hgb 13.3 Hct 40.0 MCV 93.1 MCH 31.0 MCHC 33.3 RDW 13.1 Plt Count 280 Neut % (Auto) 60.8 Lymph % (Auto) 29.3 [place] % (Auto) 7.7 Eos % (Auto) 1.0 L Baso % (Auto) 1.2 Neut # (Auto) 3700 Lymph # (Auto) 1800 [place] # (Auto) 500 Eos # (Auto) 100 Baso # (Auto) 100 PT 12.3 INR 1.1 APTT 33 Sodium 137 Potassium 3.6 Chloride 102 Carbon Dioxide 29 BUN 14 Creatinine 0.87 Estimated GFR > 60 BUN/Creatinine Ratio 16.1 Glucose 101 Calcium 10.3 H Magnesium 2.0 Total Bilirubin 0.7 AST 32 ALT 20 Alkaline Phosphatase 37 L Total Creatine Kinase 53 Troponin I < 0.012 Total Protein 7.3 Albumin 4.7 Globulin 2.6 Albumin/Globulin Ratio 1.8 U Opiates 300ng/mL cut Negative Ur Oxycodone Screen Negative Urine Methadone Screen Negative Ur Barbiturates Screen Negative U Tricyclic Antidepress Negative Ur Phencyclidine Scrn Negative Ur Amphetamines Screen Negative U Methamphetamines Scrn Negative Ur MDMA Scrn (Ecstasy) Negative U Benzodiazepines Scrn Negative Urine Cocaine Screen Negative U Marijuana (THC) Screen Negative Urine pH Normal Urine Specific [place] Normal Ur Creatinine Normal Assessment & Plan Assessment and plan (1) Transient ischemic attack: Problem details: Difficulty with typing ( 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 was veery unusual for her) Status: Acute (2) Headache in front of head: Problem details: Transient , not like pt's migraine headache , resolved after ASA given Status: Acute (3) Chronic peripheral neuropathic pain: Problem details: With B6 and B12 supplements, this is resolved currently Status: Acute (4) Hypercalcemia: Problem details: Repeat lab : Hypercalcemia ( calcium at 10.3 ) resolved Status: Acute (5) Hypothyroidism: Qualifiers: Hypothyroidism type: other Qualified Code(s): E03.8 - Other specified hypothyroidism Status: Chronic Plan Patient admitted for observation for neuro checks, and Echo and further Head imaging including Head and neck Angiography, however pt is allergic to both Iodine as well as Gadolinium , shall have day Hospitalist consult Neurology for any alternate imaging to obtain info re: any vascular narrowing/ occlusion as well as detailed brain imaging as CT head may not reveal an ischemic focus. Continue Baby ASA Continue supportive care Echo and lipids ( fasting if possible ) ordered Hypothyroidism : Continue Home Levothyroxine dose , TSH ordered Assessment & Plan narrative: see above Time-Based Coding :: [TOTAL MINUTES] spent with patient and on the chart (including review of chart, obtaining history, exam, reviewing outside data, placing orders, documenting exam and treatment plan, and counseling patient) on [DATE]. Does not apply Quality VTE Deep Vein Thrombosis/Pulmonary Embolism Present on Admission: No
[2024-03-14] MEDS: LEVOTHYROXINE 88 MCG TABLET PO (06:21)
[2024-03-14 06:44] LABS: Add Manual Diff / Slide Review NO; Basophils Absolute Auto 0 /uL (0-100); Basophils Percent Auto 0.8 % (0-2); Eosinophils Absolute Auto 100 /uL (0-450); Eosinophils Percent Auto 1.5 % (2-4); Hematocrit 38.5 % (36-46); Lymphocytes Absolute Auto 1200 /uL (1100-4500); Lymphocytes Percent Auto 24.4 % (25-40); Mean Corpuscular HGB Conc 33.9 % (30-36); Mean Corpuscular Hemoglobin 31.1 PG (26-34); Mean Corpuscular Volume 91.8 fL (80-100); Monocytes Absolute Auto 400 /uL (0-900); Monocytes Percent Auto 7.4 % (3-14); Neutrophils Absolute Auto 3300 /uL (1500-7000); Neutrophils Percent Auto 65.9 % (50-75); Platelet Count 268 X10^3/uL (150-400); Red Blood Cell Count 4.19 X10^6/uL (4.0-5.2); Red Cell Distribution Width 12.8 % (11.6-14.8); White Blood Cell Count 5.1 X10^3/uL (4.5-11.0)
[2024-03-14 06:55] LABS: BUN Creatinine Ratio 17.1 (6-22); Blood Urea Nitrogen 14 mg/dL (7-17); Calcium 9.8 mg/dL (8.4-10.2); Carbon Dioxide 28 mmol/L (22-32); Chloride 105 mmol/L (98-107); Estimated Glomerular Filt Rate > 60 mL/min (>60); Glucose 84 mg/dL (80-110); HEMOLYSIS < 15 (0-50); Potassium 3.9 mmol/L (3.4-5.1); Sodium 138 mmol/L (137-145)
--- NOTE | 2024-03-14 07:18 | PM.HP.1 ---
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 Pt states she was at her computer typing , when around 4:10 pm she noted she was unable to type Letter M as well as she wrote gibberish, even though not intending top. She denies any vision changes or vision loss, she tried to make a call to her Primary care doctor to report these symptoms and was unable to operate her mobile phone. She denies speech problems, no weakness of any extremity, no gen weakness, no CP, SOB, Dizziness, Vertigo, Light Headedness or Syncope. No abd pain, cough or fever. She noted a transient headache, band like of her forehead area, with no aura, and lasted about an hour after her neurologic symptoms started abating. She does not believe this headache was like her usual migraine headaches and she had no aura.Denies N/V , abd Pain, no dysuria or flank pain. No h/o HTN, DM, HLD, prior TIA / Styroke, no FH of Stroke or [place]. Pt denies h/o Cardiac arrythmias. Not taking A?C. Takes Synthroid, Vit B6 and B12 supplements, sec to h/o Peripheral Neuropathy ( controlled with B vitamins) sec to her Cancer related Radiation and Chemo therapy. She was able to call her PCP around 4:50 pm, though had trouble recalling her PCPs name, and was advised to call Urgent care, and advised her to go to ED. Pt then woke up her and he drove her to ED.Her neuro deficits were almost gone by bthe time she had reached the ED. She got a call from her friend at 6:15 pm, and pt was able to talk to her and was able to operate her phone at 6:30 pm when her son called her as well. Pt states she was free of her Headache and felt more relaxed after she recd ASA 325 mg in the ED In ED her VSS, she had a CT head done : Neg for bleed/ mass, acute changes. EKG S: She was no history of TIA or stroke. She had a 15-20 minutes episode of expressive aphasia yesterday afternoon. 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 She eventually woke her but by this time her symptoms were resolving. Her speech was normal at that point she had no other neurologic symptoms including visual changes, facial droop, slurred speech, numbness or weakness of arms or legs. She has a history of episodic hypertension in the past, family history of hyperlipidemia, she denies history of smoking, no personal history of TIA or stroke. She was no family history of TIA or stroke. She does not take chronic antiplatelet therapy. She has a significant allergy to contrast dye. [facility] Medical History Hypothyroidism Hypercalcemia Chronic peripheral neuropathic pain Social History household members: spouse Smoking Status: Never smoker Meds Home Medications and Allergies Home Medications Medication Instructions Recorded Confirmed Type acetaminophen 500 mg tablet 1 - 2 tab PO HS PRN Fever Or Pain 07/09/16 03/14/24 History (Tylenol Extra Strength) ##0 levothyroxine 50 mcg tablet 88 mcg PO QAM ##0 03/17/17 03/14/24 History aspirin 81 mg tablet,delayed 81 mg PO DAILY #30 tabs 03/14/24 Rx release atorvastatin 40 mg tablet 40 mg PO BEDTIME #30 tabs 03/14/24 Rx clopidogrel 75 mg tablet (Plavix) 75 mg PO DAILY #21 tabs 03/14/24 Rx Allergies Allergy/AdvReac Type Severity Reaction Status Date / Time Gadolinium-Containing Allergy Severe Rash Verified 03/14/24 02:34 Contrast Medi adhesive [ADHESIVE] Allergy Unknown Verified 03/14/24 12:14 iodine [IODINE] Allergy Unknown HIVES, Verified 03/14/24 12:14 ITCH-iv contrast only. topical ok. latex [LATEX] Allergy Unknown BLISTERS Verified 03/14/24 12:14 hydrochlorothiazide AdvReac Mild VERY LOW Verified 03/14/24 12:14 [HYDROCHLOROTHIAZIDE] POTASSIUM(LABS) gabapentin [GABAPENTIN] AdvReac Unknown Mental Verified 03/14/24 12:14 confusion, Headache, Dizzy/Lightheaded propoxyphene [From DARVON] AdvReac Unknown NAUSEA Verified 03/14/24 12:14 Review of Systems Review of Systems Narrative: All else reviewed and otherwise unremarkable except as noted in the history and physical. Exam Vital Signs (past 8 hours): - 03/13/24 23:30 03/13/24 23:30 03/14/24 00:00 Temperature Pulse Rate 75 Respiratory Rate 18 Blood Pressure 122/63 103/55 L Pulse Oximetry 96 Oxygen Flow Rate 03/14/24 00:00 03/14/24 00:27 Temperature 97.4 F L Pulse Rate 75 71 Respiratory Rate 18 18 Blood Pressure 133/66 Pulse Oximetry 96 99 Oxygen Flow Rate 0 Oxygen Delivery Method Room Air Oxygen Flow Rate 0 Narrative Exam Narrative: NAD, alert and oriented, fluent speech, calm. Normocephalic skull, EOMI, anicteric sclera, symmetric pupils. Oropharynx unremarkable, no droop. Neck supple, midline trachea, no adenopathy. Lungs clear, normal rate and effort. Heart regular, no murmur gallop or rub. Abdomen is soft, non distended and non tender. Extremities are free of edema. Skin is free of rash or lesions. Joints are not swollen or deformed. Judgment appears to be normal. Neuro: Normal speech, and judgment. Pleasant affect. Cranial nerves are intact, no facial droop. Motor strength is normal in all extremities. Objective ECG Impression: Normal sinus rhythm Septal infarct , age undetermined Imaging Chest x-ray: Radiologist's impression: No acute cardiopulmonary abnormality is seen. CT scan - head: Radiologist's impression: No acute intracranial pathology. Labs 03/14/24 06:20 03/14/24 06:20 Labs: Laboratory Results - last 24 hr 03/13/24 03/13/24 03/14/24 17:50 20:20 06:20 WBC 6.2 5.1 RBC 4.30 4.19 Hgb 13.3 13.0 Hct 40.0 38.5 MCV 93.1 91.8 MCH 31.0 31.1 MCHC 33.3 33.9 RDW 13.1 12.8 Plt Count 280 268 Neut % (Auto) 60.8 65.9 Lymph % (Auto) 29.3 24.4 L [place] % (Auto) 7.7 7.4 Eos % (Auto) 1.0 L 1.5 L Baso % (Auto) 1.2 0.8 Neut # (Auto) 3700 3300 Lymph # (Auto) 1800 1200 [place] # (Auto) 500 400 Eos # (Auto) 100 100 Baso # (Auto) 100 0 PT 12.3 INR 1.1 APTT 33 Sodium 137 138 Potassium 3.6 3.9 Chloride 102 105 Carbon Dioxide 29 28 BUN 14 14 Creatinine 0.87 0.82 Estimated GFR > 60 > 60 BUN/Creatinine Ratio 16.1 17.1 Glucose 101 84 Calcium 10.3 H 9.8 Magnesium 2.0 Total Bilirubin 0.7 AST 32 ALT 20 Alkaline Phosphatase 37 L Total Creatine Kinase 53 Troponin I < 0.012 Total Protein 7.3 Albumin 4.7 Globulin 2.6 Albumin/Globulin Ratio 1.8 U Opiates 300ng/mL cut Negative Ur Oxycodone Screen Negative Urine Methadone Screen Negative Ur Barbiturates Screen Negative U Tricyclic Antidepress Negative Ur Phencyclidine Scrn Negative Ur Amphetamines Screen Negative U Methamphetamines Scrn Negative Ur MDMA Scrn (Ecstasy) Negative U Benzodiazepines Scrn Negative Urine Cocaine Screen Negative U Marijuana (THC) Screen Negative Urine pH Normal Urine Specific [place] Normal Ur Creatinine Normal Assessment & Plan Assessment & Plan narrative: 1. TIA, present on admission and active. 2. History of migraine headaches, stable. 3. History of breast cancer, status post mastectomy with chemo therapy and radiation. 4. Hypothyroidism, present on admission and stable. 5. Remote benign adrenal tumor, present on admission and active. Plan: -telemetry -MRI brain, rule out stroke. -CTA, assess cerebral arteries. -screening a A1c and lipid panel. -echo. Anticipate a 1 midnight hospital stay, observation status. Time-Based Coding :: 35 min spent with patient and on the chart (including review of chart, obtaining history, exam, reviewing outside data, placing orders, documenting exam and treatment plan, and counseling patient) on 03/14. Quality VTE Deep Vein Thrombosis/Pulmonary Embolism Present on Admission: No MIPS - Admit I confirm the patient?s Advance Care Plan is present, Code status is documented, Surrogate decision maker is in patient?s record [If Yes, STOP here]: Yes MIPS - Meds 'Current medications' to include all prescriptions, [id number] products, herbals, cannabis/cannabidiol products, and vitamin/mineral/dietary (nutritional) supplements. I have utilized all available resources to obtain, update, or review the patient?s current medications. [If Yes, STOP here]: Yes
--- NOTE | 2024-03-14 07:24 | DI.ECHO.S_ITS ---
[facility] : : [address] : : [place] : : [id number] : : Phone: [phone] Echocardiogram Report + + :Name: RADHA BONILLA Study Date: 03/14/2024 Height: 62 in : :[facility] ReadingLocation: Weight: 119 lb: : Gender: Female BSA: 1.5 m2 : :: 1955 Age: 68 yrs : :Reason For Study: TIA : :Ordering Physician: SATHISH, : :JOSIAH Ceja Performed By: Funmilayo Lua : :Referring: JOSIAH BOWER : + + Interpretation Summary 1. The left ventricular contractility is normal. Estimate ejection fraction is greater than 60% with no segmental wall motion abnormalities. No LVH. Normal diastolic function. 2. The right ventricle contractility is normal. 3. All cardiac chambers are of normal size. 4. Mild tricuspid regurgitation with estimated pulmonary systolic artery pressures of 24 mmHg. 5. No intracardiac shunts noted on agitated saline contrast study. 6. No obvious intracardiac masses nor thrombi. 7. No hemodynamically significant pericardial effusion. 8. Low right-sided filling pressures. Conclusion: Normal biventricular function with mild tricuspid regurgitation with no structural abnormalities. When compared with previous complete echocardiogram from January 20, 2017, the left ventricular systolic function has improved with decrease in valvular regurgitations. Procedure: A two-dimensional transthoracic echocardiogram with color flow and Doppler was performed. A saline contrast injection was performed to assess for cardiac shunting. The study quality was technically adequate. Comparison is made with the echocardiogram of 03/15/2017. The patient was in sinus rhythm with heart rates between 64-79 bpm during the exam. Left Ventricle: The left ventricle is normal in size and wall thickness. The ejection fraction is estimated to be 60-65%. Diastolic parameters suggest probable normal left ventricular diastolic function and normal filling pressures. Right Ventricle: The right ventricle is at the upper limits of normal in size. The right ventricular systolic function is normal. Atria: The left atrial size is normal. Right atrial size is normal. There is no Doppler evidence for an interatrial shunt. Injection of contrast documented no interatrial shunt. Mitral Valve: The mitral valve leaflets appear to open well. There is trace mitral regurgitation. Aortic Valve: The aortic valve is trileaflet. The aortic valve opens well. There is no aortic valve stenosis. No aortic regurgitation is present. Tricuspid Valve: The tricuspid valve leaflets are thin and pliable. There is mild tricuspid regurgitation. The right ventricular systolic pressure is estimated to be at least 24 mmHg based on an estimated right atrial pressure of 3 mm Hg. Pulmonic Valve: The pulmonic valve is not well visualized. There is no pulmonic valvular regurgitation. Great Vessels: The aortic root is normal size. The dimensions of the ascending aorta are normal. The IVC is of normal diameter and collapses greater than 50% with a sniff. This suggests a low right atrial pressure of 3 mm Hg. Pericardium/ Pleura There is no pericardial effusion. There is no pleural effusion. MMode/2D Measurements & Calculations LVIDd: 4.3 cm LVOT diam: 1.9 cm LVIDs: 2.8 cm Ao root diam: 2.8 cm FS: 34.8 % asc Aorta Diam: 3.6 cm EPSS: 0.50 cm Ao Arch Diam (Prox Trans): 2.8 cm IVSd: 0.66 cm LVPWd: 0.71 cm LV hagen. diameter/BSA (cm/m^2): 2.8 LV sys. diameter/BSA (cm/m^2): 1.8 LA A2 area: 11.6 cm2 RA long axis: 4.2 cm LA A4 area: 11.4 cm2 RA area: 14.3 cm2 LA length (vol): 4.2 cm RA vol: 41.6 ml LA vol: 26.9 ml RA : 27.1 ml/m2 LA vol index: 17.6 ml/m2 IVC diam: 0.79 cm RVD1 (basal): 3.9 cm TAPSE: 2.1 cm Doppler Measurements & Calculations Ao V2 max: 121.0 cm/sec LVOT Max Rufino: 66.7 cm/sec Ao V2 mean: 83.6 cm/sec LV V1 max P.8 mmHg Ao max P.9 mmHg LV V1 VTI: 15.0 cm Ao mean P.1 mmHg JEANINE(I,D): 1.7 cm2 Ao V2 VTI: 25.1 cm JEANINE(V,D): 1.6 cm2 sev ratio: 0.60 JEANINE indexed to BSA (cm^2/m^2): 1.1 MV E max rufino: 64.6 cm/sec TR max rufino: 228.2 cm/sec MV A max rufino: 61.3 cm/sec TR max P.8 mmHg MV E/A: 1.1 PA V2 max: 70.8 cm/sec Med Peak E' Rufino: 10.5 cm/sec PA V2 mean: 50.2 cm/sec E/E' med: 6.2 PA mean P.2 mmHg Lat Peak E' Rufino: 13.1 cm/sec PA pr(Accel): 29.3 mmHg E/E' lat: 4.9 E/e' average: 5.6 MV dec time: 0.23 sec SV(LVOT): 42.5 ml Reading Physician:
--- NOTE | 2024-03-14 07:31 | DI.MRI.S_ITS ---
PROCEDURE: MR HEAD/BRAIN WO CON INDICATIONS: TIA TECHNIQUE: Non-contrast axial T1 spin echo, axial T2 fast spin echo, sagittal and axial FLAIR, coronal T2 fast spin echo, axial gradient echo, axial diffusion and ADC through the brain. COMPARISON: [facility], CT, CT HEAD/BRAIN WO CON, 03/13/2024, 18:21. FINDINGS: Image quality: Excellent. CSF spaces: Ventricles appear symmetric in size and shape. Basal cisterns are patent. No extra-axial fluid collections. Brain: No intracranial bleeds or mass effects. There is cerebral volume loss for age. There are periventricular and deep white matter chronic small vessel ischemic changes. Brainstem appears normal. Diffusion-weighted images show no acute infarct. No chronic ischemic insults. Normal intravascular flow voids are present. Skull and face: Calvarial bone marrow is normal in signal. Orbits are normal. Sinuses: Sinuses and mastoids are clear. IMPRESSION: 1. No acute intracranial process. 2. Mild atrophy and chronic microvascular ischemic changes. Dictated by: Carmen Castro M.D. on 03/14/2024 at 11:11 Approved by: Carmen Castro M.D. on 03/14/2024 at 11:13
[2024-03-14 08:00] VITALS: BP 101/55; PULSE 89; RESP 16; O2SAT 99
[2024-03-14 08:56] LABS: TSH w/ Reflex to FT4 1.97 uIU/mL (0.47-4.68); Thyroid Stimulating Hormone 1.97 uIU/mL (0.47-4.68)
[2024-03-14] MEDS: ASPIRIN EC 81 MG TABLET PO (09:21)
[2024-03-14] MEDS: ENOXAPARIN 40 MG/0.4 ML SYRINGE SUBCUT (09:21)
[2024-03-14] MEDS: LORazepam 2 MG/ML INJ 0.5 MG IV (09:21)
--- NOTE | 2024-03-14 11:42 | CM.DANOTE ---
Initial DCP Assessment Visit Note Reviewed EMR and team rounds for status updates. Met with pt at bedside to introduce self and role, pt was found to be alert/oriented, back to baseline cognitively and functionally. Pt resides independently with her spouse in their own home here in [place]. Her spouse will plan to cat driver her home later this afternoon, she has been medically cleared for d/c. She denies any CM assistance or resource needs at this time. Payor: [facility] Medicare OCN No PCP listed Pt is a 68 year-old F who presented to the ED after she had noticed that she suddenly not able to type, use her phone, or speak normally. By the time she arrived at the ED she was no longer experiencing deficits. ED imaging was negative for brain abnormalities, brain MRI is being completed today, ECHO was completed today. Per Hospitalist, pt likely had a TIA. 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 No History Provided By Patient,Medical Record Has Patient been admitted in last 30 No days? Prior Living Arrangements House Household Members spouse Type of transporation used prior to Drives own vehicle admit Independent with ADL's Yes Is patient alert and oriented? Yes Comment N/A Caregiver for Another No Comment N/A Comment N/A Comment None identified at this time. Barriers to Discharge No Transportation Arrangement Spouse Referrals Initiated None needed Whiteboard Updated in Patient Room with Yes name and ext. # of F[employer] Planter Review Status In Process Please Provide Date Initial DC 03/14/24 Assessment Was Performed
[2024-03-14 12:00] VITALS: BP 104/61; PULSE 78; RESP 16; TEMP 36.2; O2SAT 97
--- NOTE | 2024-03-14 12:08 | OT.IP.EVAL ---
Current Diagnoses Other specified hypothyroidism (03/13/24) Hypercalcemia (03/13/24) Transient cerebral ischemic attack, unspecified (03/13/24) Other chronic pain (03/13/24) Neuralgia and neuritis, unspecified (03/13/24) Headache, unspecified (03/13/24) Past Medical History (Last Updated 03/14/24 @ 08:37 by Shannan Hsu MD) Chronic peripheral neuropathic pain Hypercalcemia Hypothyroidism Occupational Therapy Inpatient Evaluation/Re-Eval M1 PT/OT-IP Prior Functional Status Start: 03/14/24 12:17 Freq: NEEDED Status: Active Protocol: Document 03/14/24 12:18 [facility] (Rec: 03/14/24 12:30 [facility] [id number]) Medical Review Prior Functional Status Medical History Reviewed Yes Communication I Mobility and Gait I Activities of Daily Living and IADL's I Social History Household Members spouse Living Arrangements House Number of Floors (Floors) One Floor Number of Stairs To Enter/Railing? 3 steps with no rails and then one step to get into the house. Home Environment Standard Height Toilet,Walk in Shower,Tub/Shower M2 OT-IP Current Condition Start: 03/14/24 12:17 Freq: Status: Active Protocol: Document 03/14/24 12:18 [facility] (Rec: 03/14/24 12:30 [facility] [id number]) Occupational Therapy Current Condition Current Condition Evaluation Date 03/14/24 Treatment Diagnosis S/P TIA Diagnosis Onset Date 03/13/24 M3 OT- IP Subjective and Pain Start: 03/14/24 12:17 Freq: Status: Active Protocol: Document 03/14/24 12:18 [facility] (Rec: 03/14/24 12:30 [facility] [id number]) OT- Subjective Occupational Therapy Visit Type Type Initial Evaluation Visit Start Time 11:50 Visit Stop Time 12:08 Occupational Therapy Visit Comments Patient Comments Pt agreed to do OT eval. Patient/Caregiver Goals To go home. OT Pain Assessment Pain When Pain Assessed At Rest Pain Present Pain Present Denied Pain M4 OT- IP ADL's Start: 03/14/24 12:17 Freq: Status: Active Protocol: Document 03/14/24 12:18 [facility] (Rec: 03/14/24 12:30 [facility] [id number]) OT [id number] General Evaluation Self-Feeding Ability Independent OT ADL-Grooming Comments OT Grooming Comments NOt performed. OT ADL-Oral Care Comments Oral Care Comments Not performed. OT ADL-Dressing Comments OT Dressing Comments Pt realizes a little unsteady at this time due to had Ativan prior to MRI. OT ADL-Toileting Comments OT Toileting Comments Prior pt using the toilet on her own. OT ADL-Bathing Comments OT Bathing Comments Not performed. M5 OT- IP IADL's Start: 03/14/24 12:17 Freq: Status: Active Protocol: Document 03/14/24 12:18 [facility] (Rec: 03/14/24 12:30 [facility] [id number]) OT-Instrumental Activities of Daily Living Home Safety Awareness Awareness of Need for Assistance at Home Good Awareness Ability to Problem Solve Emergency Able to Problem Solve Situations Home Safety Comments Pt a little groggy due to just having Ativan, pt's able to assist pt. Driving Driving Comments At this time, pt states will not drive at this time as feeling a little groggy from just having Ativan earlier. M6 OT- IP Functional Cognition Start: 03/14/24 12:17 Freq: Status: Active Protocol: Document 03/14/24 12:18 [facility] (Rec: 03/14/24 12:30 [facility] [id number]) Cognitive Factors Limiting Selfcare Function Cognitive Ability Level of Alertness Alert Patient Orientation Name,Age,Birthday,Month,Date, Year,Day of Week,Place, Situation Attention Span Ability Capable of Focused Attention, Capable of Sustained Attention Ability to Follow Commands Able to Follow Multi-Step Commands Memory Description Short Term Impaired Problem Solving Ability No deficits Noted Executive Function Ability No Deficits Noted Cognitive Tests SLUMS Pt scored 27/30 and having difficulty to recall objects after times passed. Pt's score probably impacted by having Ativan 3 hours earlier. Pt admits has to write things down all the time. Cognitive Comments Cognitive Assessment Comments Pt scored 121 seconds on [place] Making Part B which implies moderate impairments for speed of processing, mental flexibility, executive functioning, task switching, and visual attention. Pt score impacted by having Ativan earlier. Pt is well aware not to drive at this time. OT- Vision and Hearing OT- Vision Assessment Visual Acuity WFL Visual Attentiveness WFL Occular Pursuits WFL Visual Convergence WFL Visual [place] WFL M7 OT- IP Mobility and Balance Start: 03/14/24 12:17 Freq: Status: Active Protocol: Document 03/14/24 12:18 [facility] (Rec: 03/14/24 12:30 [facility] [id number]) OT- Bed Mobility Assessment Supine to Sit Supine to Sit Assist Independent Scooting Scooting to Edge of Bed Independent OT-Transfer Assessment Sit to and From Stand Sit to and from Stand Independent OT- Balance Assessment Sitting Balance and Reactions Static Sitting Balance Ability Normal Dynamic Sitting Balance Ability Normal Standing Balance and Reactions Static Standing Balance Ability Normal M8 OT- IP Objective Assessments Start: 03/14/24 12:17 Freq: Status: Active Protocol: Document 03/14/24 12:18 [facility] (Rec: 03/14/24 12:30 [facility] [id number]) OT Gross Range of Motion Upper Extremity Range of Motion Assessment Within Functional Limits OT Strength Upper Extremity Strength Assessment Within Functional Limits OT- Coordination Assessment Upper Extremity Finger to Nose Test Within Functional Limits M9 OT- IP Assessment and Plan Start: 03/14/24 12:17 Freq: Status: Active Protocol: Document 03/14/24 12:18 [facility] (Rec: 03/14/24 12:30 [facility] [id number]) OT Summary Assessment and Plan Potential Rehabilitation Potential Excellent Analytic Complexity at Evaluation Low Summary OT Impairments Functional Cognition, Functional Mobility,Bathing Progress Towards Goals Progressing Toward Goals Assessment Summary Pt low complexity and here due to possible TIA and main barriers are just having Ativan earlier for her MRI and needing increased time for thinking and feeling unsteady at this time. Pt looking to go home with her when medically stable. Pt scored 27 /30 on the SLUMS which implies normal for cognition. Goals Bathing Goal Independent Shower Transfer Goal Independent Days to Meet Goals 2 Frequency of Treatment Frequency Of Treatment Once a Day Treatment Plan OT Treatment Plan ADL Training,Functional Cognition Training,Functional Mobility,Patient/Family Education,Discharge Planning Discharge Recommendations OT Discharge Recommendations Home with Assistance Home Equipment Needs Shower chair? Transportation Needs at Discharge Private Vehicle
--- NOTE | 2024-03-14 14:27 | PM.DS.1 ---
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 Pt states she was at her computer typing , when around 4:10 pm she noted she was unable to type Letter M as well as she wrote gibberish, even though not intending top. She denies any vision changes or vision loss, she tried to make a call to her Primary care doctor to report these symptoms and was unable to operate her mobile phone. She denies speech problems, no weakness of any extremity, no gen weakness, no CP, SOB, Dizziness, Vertigo, Light Headedness or Syncope. No abd pain, cough or fever. She noted a transient headache, band like of her forehead area, with no aura, and lasted about an hour after her neurologic symptoms started abating. She does not believe this headache was like her usual migraine headaches and she had no aura.Denies N/V , abd Pain, no dysuria or flank pain. No h/o HTN, DM, HLD, prior TIA / Styroke, no FH of Stroke or SD. Pt denies h/o Cardiac arrythmias. Not taking A?C. Takes Synthroid, Vit B6 and B12 supplements, sec to h/o Peripheral Neuropathy ( controlled with B vitamins) sec to her Cancer related Radiation and Chemo therapy. She was able to call her PCP around 4:50 pm, though had trouble recalling her PCPs name, and was advised to call Urgent care, and advised her to go to ED. Pt then woke up her and he drove her to ED.Her neuro deficits were almost gone by bthe time she had reached the ED. She got a call from her friend at 6:15 pm, and pt was able to talk to her and was able to operate her phone at 6:30 pm when her son called her as well. Pt states she was free of her Headache and felt more relaxed after she recd ASA 325 mg in the ED In ED her VSS, she had a CT head done : Neg for bleed/ mass, acute changes. EKG S: She was no history of TIA or stroke. She had a 15-20 minutes episode of expressive aphasia yesterday afternoon. 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 She eventually woke her but by this time her symptoms were resolving. Her speech was normal at that point she had no other neurologic symptoms including visual changes, facial droop, slurred speech, numbness or weakness of arms or legs. She has a history of episodic hypertension in the past, family history of hyperlipidemia, she denies history of smoking, no personal history of TIA or stroke. She was no family history of TIA or stroke. She does not take chronic antiplatelet therapy. She has a significant allergy to contrast dye. Discharge Providers Provider Date of admission: 03/13/24 23:29 Discharge Date: 03/14/24 Consults: 03/14/24 02:42 Consult to Occupational Therapy Evaluate & Treat Comment: cognitive therapy Physician Instructions: Evaluate and treat Discharge provider: Rosas Berumen MD Summary Hospital Course Discharge Diagnosis: 1. TIA (Expressive aphasia), present on admission and resolved. 2. History of migraine headaches, stable. 3. History of breast cancer, status post mastectomy with chemo therapy and radiation. 4. Hypothyroidism, present on admission and stable. 5. Remote benign adrenal tumor, present on admission and active. Hospital Course: She was admitted with a TIA by history. Symptoms resolve the time of admission. CT head negative. CTA deferred because of a contrast allergy. MRI was negative for evidence of stroke. She would normal neuro exam. She does not take antiplatelet therapy. She does have a family history of vascular issues and hyperlipidemia. She like to return home and is agreeable to dual antiplatelet therapy for high-risk TIA for 21 days followed by monotherapy with aspirin indefinitely and atorvastatin indefinitely. Status at Discharge Cognitive/behavioral status at discharge: oriented Functional status at discharge: independent ambulation Overall status at discharge: patient is back to baseline Time Spent with Patient Time spent: Greater than 30 minutes Exam Vital Signs (past 8 hours): - 03/14/24 08:00 03/14/24 08:00 03/14/24 12:00 Temperature 97.1 F L Pulse Rate 89 78 Respiratory Rate 16 16 Blood Pressure 101/55 L 104/61 Pulse Oximetry 99 97 Oxygen Delivery Method Room Air Oxygen Delivery Method Room Air Oxygen Flow Rate 0 Narrative Exam Narrative: NAD, alert and oriented, fluent speech, calm. Normocephalic skull, EOMI, anicteric sclera, symmetric pupils. Oropharynx unremarkable, no droop. Neck supple, midline trachea, no adenopathy. Lungs clear, normal rate and effort. Heart regular, no murmur gallop or rub. Abdomen is soft, non distended and non tender. Extremities are free of edema. Skin is free of rash or lesions. Joints are not swollen or deformed. Judgment appears to be normal. Neuro: Normal speech, and judgment. Pleasant affect. Cranial nerves are intact, no facial droop. Motor strength is normal in all extremities. Objective ECG Impression: Normal sinus rhythm Septal infarct , age undetermined Imaging Multiple studies:: Radiologist's impression: Chest x-ray: Radiologist's impression: No acute cardiopulmonary abnormality is seen. CT scan - head: Radiologist's impression: No acute intracranial pathology. MR brain: No acute stroke. ECHO: . The left ventricular contractility is normal. Estimate ejection fraction is greater than 60% with no segmental wall motion abnormalities. No LVH. Normal diastolic function. 2. The right ventricle contractility is normal. 3. All cardiac chambers are of normal size. 4. Mild tricuspid regurgitation with estimated pulmonary systolic artery pressures of 24 mmHg. 5. No intracardiac shunts noted on agitated saline contrast study. 6. No obvious intracardiac masses nor thrombi. 7. No hemodynamically significant pericardial effusion. 8. Low right-sided filling pressures. Conclusion: Normal biventricular function with mild tricuspid regurgitation with no structural abnormalities. When compared with previous complete echocardiogram from January 20, 2017, the left ventricular systolic function has improved with decrease in valvular regurgitations. Labs 03/14/24 06:20 03/14/24 06:20 Labs: Laboratory Results - last 24 hr 03/13/24 03/13/24 03/14/24 17:50 20:20 06:20 WBC 6.2 5.1 RBC 4.30 4.19 Hgb 13.3 13.0 Hct 40.0 38.5 MCV 93.1 91.8 MCH 31.0 31.1 MCHC 33.3 33.9 RDW 13.1 12.8 Plt Count 280 268 Neut % (Auto) 60.8 65.9 Lymph % (Auto) 29.3 24.4 L [place] % (Auto) 7.7 7.4 Eos % (Auto) 1.0 L 1.5 L Baso % (Auto) 1.2 0.8 Neut # (Auto) 3700 3300 Lymph # (Auto) 1800 1200 [place] # (Auto) 500 400 Eos # (Auto) 100 100 Baso # (Auto) 100 0 PT 12.3 INR 1.1 APTT 33 Sodium 137 138 Potassium 3.6 3.9 Chloride 102 105 Carbon Dioxide 29 28 BUN 14 14 Creatinine 0.87 0.82 Estimated GFR > 60 > 60 BUN/Creatinine Ratio 16.1 17.1 Glucose 101 84 Calcium 10.3 H 9.8 Magnesium 2.0 Total Bilirubin 0.7 AST 32 ALT 20 Alkaline Phosphatase 37 L Total Creatine Kinase 53 Troponin I < 0.012 Total Protein 7.3 Albumin 4.7 Globulin 2.6 Albumin/Globulin Ratio 1.8 TSH 1.97 U Opiates 300ng/mL cut Negative Ur Oxycodone Screen Negative Urine Methadone Screen Negative Ur Barbiturates Screen Negative U Tricyclic Antidepress Negative Ur Phencyclidine Scrn Negative Ur Amphetamines Screen Negative U Methamphetamines Scrn Negative Ur MDMA Scrn (Ecstasy) Negative U Benzodiazepines Scrn Negative Urine Cocaine Screen Negative U Marijuana (THC) Screen Negative Urine pH Normal Urine Specific [place] Normal Ur Creatinine Normal PFSH Medical History Hypothyroidism Hypercalcemia Chronic peripheral neuropathic pain Social History household members: spouse Smoking Status: Never smoker Discharge Assessment & Plan Assessment and Plan Assessment: 1. TIA (Expressive aphasia), present on admission and resolved. 2. History of migraine headaches, stable. 3. History of breast cancer, status post mastectomy with chemo therapy and radiation. 4. Hypothyroidism, present on admission and stable. 5. Remote benign adrenal tumor, present on admission and active. Plan of Treatment: Discharge home, dual antiplatelet therapy 21 days and then aspirin monotherapy thereafter. Atorvastatin 40 daily. Follow up with PCP within 6 days, recommend 911 for acute neurologic symptoms in the future. Discharge Plan Discharge Plan Patient Disposition: Home Provider Discharge Comment: Stable for discharge home, resolved TIA. MRI negative. Follow up with PCP within 6 days. Discharge orders & Medications Prescriptions: New aspirin 81 mg Tablet,Delayed Release (Dr/Ec) 81 mg PO DAILY Qty: 30 11RF clopidogrel [Plavix] 75 mg tablet 75 mg PO DAILY Qty: 21 0RF atorvastatin 40 mg tablet 40 mg PO BEDTIME Qty: 30 11RF Continued acetaminophen [Tylenol Extra Strength] 500 MG tablet 1 - 2 tab PO HS PRN (Reason: Fever Or Pain) Qty: 0 levothyroxine 50 MCG tablet 88 mcg PO QAM Qty: 0 Diet/Activity/Treatments Diet: Low-cholesterol Visit Report/Discharge Packet Instructions: Atorvastatin, Clopidogrel, Aspirin Stand Alone Forms: Patient Portal/API, Stroke Signs & Symptoms Discharge Data Attending Provider: Shannan Hsu Admit Date/Time: 03/13/24 23:29 Quality VTE Deep Vein Thrombosis/Pulmonary Embolism Present on Admission: No
--- NOTE | 2024-03-14 17:41 | PC.NURSE ---
Discharge: Ready for d/c to home. Seen by MD and given discharge instructions and results. Pt understands new medication. Seen by OT and released. NIH - 0. Discharge packet given and reviewed by Sebastian CRABTREE. Rx esent. Questions answered. Pt d/c to home via auto with spouse.
== END 2024-03-14 14:44 | disposition home or self-care (01) ==
LOC: ED 23:18 → AC 23:30
PROVIDERS: Admitting Provider Hospitalist; Emergency Provider Emergency Medicine; Referring Provider Emergency Medicine; Visit Provider Hospitalist
DX: G45.9 Transient cerebral ischemic attack, unspecified (principal); R47.01 Aphasia; R51.9 Headache, unspecified; R29.818 Other symptoms and signs involving the nervous system; E03.9 Hypothyroidism, unspecified
CPT/HCPCS: 36415; 70450; 70551; 71045; 80048; 80053; 80305; 82550; 82962; 83735; 84443; 84484; 85025; 85610; 85730; 93005; 93010; 93306; 96372; 96374; 97165; 99284; 99291; G0378; J1650; J2060

== ENCOUNTER → 2024-05-30 13:53 | Outpatient (CLI) | payer MEDICARE, SELFPAY ==
--- NOTE | 2024-05-30 13:54 | DI.US.S_ITS ---
PROCEDURE: US CAROTID DOPPLER BI INDICATIONS: HX TIA TECHNIQUE: Color and pulse Doppler interrogation was performed of both carotid systems, with image documentation and velocity measurements. COMPARISON: None. FINDINGS: Stenosis calculations are based on SRU (Society of Radiologists in Ultrasound) criteria. Right side: Common carotid artery peak systolic velocity: 75 cm/sec. Internal carotid artery peak systolic velocity: 80 cm/sec. Internal carotid artery end diastolic velocity: 23 cm/sec. External carotid artery peak systolic velocity: 60 cm/sec. ICA/CCA peak systolic ratio: 1.1. Bill scale imaging description: Minimal plaque. Percent internal carotid artery stenosis: Less than 50% stenosis. Vertebral artery: Flow direction is antegrade. Left side: Common carotid artery peak systolic velocity: 78 cm/sec. Internal carotid artery peak systolic velocity: 62 cm/sec. Internal carotid artery end diastolic velocity: 24 cm/sec. External carotid artery peak systolic velocity: 53 cm/sec. ICA/CCA peak systolic ratio: 0.8. Bill scale imaging description: Mild calcified plaque Percent internal carotid artery stenosis: Less than 50% stenosis. Vertebral artery: Flow direction is antegrade. IMPRESSION: 1. Right ICA: Less than 50 % stenosis. 2. Left ICA: Less than 50 % stenosis. 3. Antegrade flow in the bilateral vertebral arteries. Dictated by: Deepak Reeves M.D. on 05/31/2024 at 12:05 Approved by: Deepak Reeves M.D. on 05/31/2024 at 12:08
--- NOTE | 2024-05-30 13:55 | DI.RAD.S_ITS ---
PROCEDURE: XR DEXA AXIAL SKELETON INDICATIONS: HX TIA/POSTMENOPAUSAL STATUS COMPARISON: [facility] , DEXA AXIAL SKELETON, 01/22/2016, 16:24. FINDINGS: Lumbar Spine: Bone mineral density 0.966 g/cm2, T score -0.7, normal, change from previous-14.7%, Statistical significance of bone mineral density change cannot be determined due to dissimilar scan types or analysis method.. Left Femoral Neck: Bone mineral density 0.683 g/cm2, T score -1.5, osteopenia. Left Hip: Bone mineral density 0.799 g/cm2, T score -1.2, osteopenia, change from previous-16.6%. Statistical significance of bone mineral density change cannot be determined due to dissimilar scan types or analysis method.. Fracture Risk Calculation (when applicable): 10-year fracture risk of a major osteoporotic fracture 9% percent and of a hip fracture 1.3% percent. (T score greater or equal to -1.0 to: NORMAL) (T score from -1.1 to -2.4: OSTEOPENIA) (T score less than or equal to -2.5: OSTEOPOROSIS) IMPRESSION: Osteopenia elevates the patient's 10 year fracture risk as described. Interval decrease in lumbar spine and left hip bone mineral density since the prior study. Statistical significance cannot be calculated. Follow-up guidelines as follows: Osteoporosis: Consider a repeat DEXA and Vertebral Fracture Assessment (VFA) exam in 2 years or sooner if medically necessary, to reassess this patient's status. Osteopenia: Consider a repeat DEXA in 2-3 years to reassess this patient's status, or if there is a new clinical indication. Normal: Consider a repeat DEXA in 5 years or sooner, or if there is a new clinical indication. All treatment decisions require clinical judgment and consideration of individual patient factors, including patient preferences, comorbidities, previous drug use, risk factors not captured in the FRAX model (e.g., frailty, falls, vitamin D deficiency, increased bone turnover, interval significant decline in bone density ) and possible under- or over-estimation of fracture risk by FRAX. In addition, the NOF Guide recommends that FDA-approved medical therapies be considered in postmenopausal women and men age >= 50 years with a: * Hip or vertebral (clinical or morphometric) fracture * T-score of <=-2.5 at the spine or hip * Ten-year fracture probability by FRAX of >= 3% for hip fracture or >=20% for major osteoporotic fracture. Dictated by: Gela Ndiaye M.D. on 06/01/2024 at 8:20 Approved by: Gela Ndiaye M.D. on 06/01/2024 at 8:22
== END ==
PROVIDERS: PCP Internal Medicine; Referring Provider Internal Medicine; Visit Provider Internal Medicine
DX: M85.852 Other specified disorders of bone density and structure, left thigh (principal); Z78.0 Asymptomatic menopausal state; I65.23 Occlusion and stenosis of bilateral carotid arteries; Z86.73 Personal history of transient ischemic attack (TIA), and cerebral infarction without residual deficits
CPT/HCPCS: 77080; 93880